=== PATIENT | male | born 1990 | race Two or more races ===

== ENCOUNTER 2020-01-21 16:27 | Emergency (ER) | payer MEDICAID ==
[~2020-01-21] VITALS: Ht 165.1 cm; Wt 106.6 kg
[2020-01-21 17:04] VITALS: BP 135/77
== END 2020-01-21 20:40 | disposition home or self-care (01) ==
LOC: ER 16:28
DX: J12.89 Other viral pneumonia (principal); J01.00 Acute maxillary sinusitis, unspecified; Z20.828 Contact with and (suspected) exposure to other viral communicable diseases
CPT/HCPCS: 36415; 71045; 87426; 99284; C9803; U0003